=== PATIENT | female | born 2000 | race Two or more races ===

== ENCOUNTER 2020-09-16 19:40 | Emergency (ER) | payer OTHER ==
[2020-09-16 19:54] VITALS: BP 124/52
--- NOTE | 2020-09-16 21:51 | ER Document Report ---
ED Medical Screen (RME) - General Stated Complaint: NAUSEA DUE TO MEDICATION - HPI Notes: 09/16/20 21:45 Rapid Medical Exam HPI: 20yo female c/o n/v related to severe anxiety. says her anxiety is related to her significant others ''legal problems''. Pt says she went to [facility] recently for this and they started her on reflux medications. Pt was seen today and was told to go to the ER for possible IVF and maybe antibiotics. says that she may have a UTI but denies symptoms. Pt is not on anxiety medications. says she is only vomiting ''bile''. Physical Exam: GENERAL: Well-appearing, well-nourished and in no acute distress. HEAD: Atraumatic, normocephalic. ENT: Moist mucous membranes. RESP: Respirations even and unlabored CV- tachy- 110 NEURO: No focal neurological deficits. Moves all extremities spontaneously and on command. My involvement in this patients care was limited to a rapid initial assessment. A comprehensive ED assessment and evaluation of the patient, analysis of test results, treatment, and completion of the medical decision making process will be performed by other ER providers. Physical Exam - Vital signs Vitals: Temp Pulse BP Pulse Ox 99.1 F 137 H 124/52 L 97 09/16/20 19:52 09/16/20 19:52 09/16/20 19:52 09/16/20 19:52 Course - Vital Signs Vital signs: Temp Pulse Resp BP Pulse Ox 99.1 F 137 H 124/52 L 97 09/16/20 19:52 09/16/20 19:52 09/16/20 19:52 09/16/20 19:52
[2020-09-16 22:18] LABS: APPEARANCE,URINE CLEAR; BILIRUBIN,URINE NEGATIVE (NEGATIVE); COLOR,URINE YELLOW; GLUCOSE, URINE NEGATIVE (NEGATIVE); KETONES,URINE TRACE mg/dL (NEGATIVE); LEUKOCYTE ESTERASE,URINE NEGATIVE (NEGATIVE); NITRITE,URINE NEGATIVE (NEGATIVE); PROTEIN,URINE NEGATIVE (NEGATIVE); URINE SPECIFIC GRAVITY 1.017
== END 2020-09-17 02:22 | disposition left against medical advice (07) ==
LOC: ER 19:40
DX: Z53.20 Procedure and treatment not carried out because of patient's decision for unspecified reasons (principal); R11.0 Nausea
CPT/HCPCS: 81001; 81025; 99281